=== PATIENT | female | born 1935 | race Caucasian/White ===

== ENCOUNTER 2016-04-05 07:39 | Outpatient (CLI) | payer MEDICARE ==
[2016-04-05 09:12] LABS: Anion Gap 15 mmol/L (10-20); BUN (Urea Nitrogen) 19 mg/dL (9.8-20.1); Calc. Creatinine Clearance 0 mL/min (70-130); Calcium 8.9 mg/dL (7.8-10.44); Carbon Dioxide 23 mmol/L (23-31); Chloride 107 mmol/L (98-107); Estimated GFR-MDRD 65; Glucose 117 mg/dL (83-110); Potassium 3.5 mmol/L (3.5-5.1); Sodium 141 mmol/L (136-145)
== END 2016-04-05 07:40 | disposition home or self-care (01) ==
LOC: MADLAB 07:39
PROVIDERS: ATTEND Internal Medicine Cardiovascular Disease
DX: I50.22 Chronic systolic (congestive) heart failure (principal)
CPT/HCPCS: 36415; 80048

== ENCOUNTER 2016-05-10 08:37 | Outpatient (CLI) | payer MEDICARE ==
[2016-05-10 09:27] LABS: Hemoglobin A1c 6.1 % (4.0-6.0)
[2016-05-10 09:51] LABS: ALT (SGPT) 11 U/L (0-55); AST (SGOT) 12 U/L (5-34); Albumin 3.8 g/dL (3.4-4.8); Alkaline Phosphatase 85 U/L (40-150); Anion Gap 15 mmol/L (10-20); BUN (Urea Nitrogen) 15 mg/dL (9.8-20.1); Bilirubin, Total 0.9 mg/dL (0.2-1.2); Calc. Creatinine Clearance 0 mL/min (70-130); Calcium 8.7 mg/dL (7.8-10.44); Carbon Dioxide 24 mmol/L (23-31); Cardiac Risk 3.5 (Less than 4.5); Chloride 105 mmol/L (98-107); Cholesterol 111 mg/dL (< 200 Desired); Estimated GFR-MDRD 57; Globulin 2.2 g/dL (2.4-3.5); Glucose 111 mg/dL (83-110); HDL Cholesterol 32 mg/dL (>60 Neg Risk); LDL Cholesterol, Calculated 64 mg/dL; Potassium 3.1 mmol/L (3.5-5.1); Sodium 141 mmol/L (136-145); Triglycerides 75 mg/dL (Less than 150)
[2016-05-10 10:32] LABS: Free T4 (Free Thyroxine) 1.52 ng/dL (0.70-1.48); Thyroid Stimulating Hormone 3.3022 uIU/mL (0.35-4.94)
== END 2016-05-10 08:38 ==
LOC: MADLAB 08:37
PROVIDERS: ATTEND Internal Medicine Cardiovascular Disease
DX: E78.2 Mixed hyperlipidemia (principal); I11.0 Hypertensive heart disease with heart failure; I50.22 Chronic systolic (congestive) heart failure
CPT/HCPCS: 36415; 80053; 80061; 83036; 84439; 84443; 84481

== ENCOUNTER 2016-06-30 07:22 | Outpatient (CLI) | payer MEDICARE ==
[2016-06-30 08:05] LABS: Anion Gap 16 mmol/L (10-20); BUN (Urea Nitrogen) 25 mg/dL (9.8-20.1); Calc. Creatinine Clearance 0 mL/min (70-130); Calcium 9.4 mg/dL (7.8-10.44); Carbon Dioxide 26 mmol/L (23-31); Chloride 103 mmol/L (98-107); Estimated GFR-MDRD 35; Glucose 111 mg/dL (83-110); Potassium 4.5 mmol/L (3.5-5.1); Sodium 140 mmol/L (136-145)
== END 2016-06-30 07:23 ==
LOC: MADLAB 07:22
PROVIDERS: ATTEND Internal Medicine Cardiovascular Disease
DX: I50.22 Chronic systolic (congestive) heart failure (principal); I10 Essential (primary) hypertension
CPT/HCPCS: 36415; 80048

== ENCOUNTER 2016-09-03 08:23 | Outpatient (CLI) | payer MEDICARE ==
[2016-09-03 09:31] LABS: #Eosinphils 0.3 thou/uL (0.0-0.7); #Lymphocytes 1.1 thou/uL (1.20-3.40); #Monocytes 0.6 thou/uL (0.11-0.59); #Neutrophils 5.6 thou/uL (1.40-6.50); %Basophils 0.6 % (0.0-1.0); %Lymphocytes 13.9 % (21.0-51.0); %Neutrophils 73.5 % (42.0-75.0); Hemoglobin 10.3 g/dL (12.0-16.0); Mean Corpuscular HGB CONC 31.8 g/dL (32.0-36.0); Mean Corpuscular Hemoglobin 27.6 pg (27.0-31.0); Mean Corpuscular Volume 86.9 fl (81.0-99.0); Mean Platelet Volume 6.5 fL (7.4-10.4); Platelet Count 354 thou/uL (130-400); RBC Distribution Width 14.8 % (11.5-14.5); Red Blood Cell (RBC) Count 3.74 mill/uL (4.20-5.40); White Blood Cell (WBC) Count 7.6 thou/uL (4.8-10.8)
[2016-09-03 10:02] LABS: ALT (SGPT) 12 U/L (8-55); AST (SGOT) 10 U/L (5-34); Albumin 3.4 g/dL (3.4-4.8); Alkaline Phosphatase 174 U/L (40-150); Anion Gap 18 mmol/L (10-20); BUN (Urea Nitrogen) 31 mg/dL (9.8-20.1); Bilirubin, Direct 0.4 mg/dL (0.1-0.3); Bilirubin, Total 0.6 mg/dL (0.2-1.2); Calc. Creatinine Clearance 0 mL/min (70-130); Calcium 9.4 mg/dL (7.8-10.44); Carbon Dioxide 26 mmol/L (23-31); Chloride 100 mmol/L (98-107); Estimated GFR-MDRD 29; Glucose 135 mg/dL (83-110); Potassium 3.8 mmol/L (3.5-5.1); Protein, Total 6.8 g/dL (6.0-8.3); Sodium 140 mmol/L (136-145)
--- NOTE | 2016-09-03 10:08 | RAD ---
AP PELVIS: HISTORY: Bilateral hip pain. FINDINGS: Mild symmetric degenerative changes noted at both hips. Femoral heads maintain normal contour. Mil d medial joint narrowing bilaterally. No fracture or acute osseous lesion. 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 POS: GUS
--- NOTE | 2016-09-03 10:09 | RAD ---
TWO VIEWS RIGHT HIP: COMPARISON: None. HISTORY: Right hip pain. FINDINGS: Two views right hip show no evidence of acute fracture or dislocation. No degenerative changes are seen. No soft tissue swelling is present. IMPRESSION: Unremarkable exam. POS: GUS
[2016-09-03 10:13] LABS: Bilirubin Negative (Negative); Blood, Urine Negative (Negative); Clarity Clear (Clear); Glucose, Urine (Dipstick) Negative (Negative); Leukocyte Small (Negative); Nitrite Negative (Negative); Protein, Urine (Dipstick) Negative (Neg-Trace); Specific Gravity, Urine 1.015 (1.005-1.030); Urobilinogen 0.2 mg/dL (0.2-1.0)
--- NOTE | 2016-09-03 10:15 | RAD ---
LEFT HIP HISTORY: Left hip pain. TECHNIQUE: Two views obtained. FINDINGS: There are mild degenerative changes at the left hip. Femoral head contour is normally maintained. No evidence of fracture. No acute osseous abnormality is seen. IMPRESSION: Mild degenerative changes at the left hip. POS: GUS
--- NOTE | 2016-09-03 10:29 | RAD ---
THREE VIEWS CERVICAL SPINE: COMPARISON: None. HISTORY: Neck pain. FINDINGS: Three views of the cervical spine show normal height and alignment of the vertebral bodies without f racture or subluxation. The intervertebral disks are narrowed and moderate osteophytes are seen thr oughout the cervical spine. There may be mild prevertebral soft tissue swelling which is nonspecifi c. IMPRESSION: 1. 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 2. Possible mild prevertebral soft tissue swelling. This is nonspecific. POS: GUS
== END 2016-09-03 08:24 | disposition home or self-care (01) ==
LOC: MADLAB 08:23
PROVIDERS: ATTEND Internal Medicine Cardiovascular Disease
DX: I50.23 Acute on chronic systolic (congestive) heart failure (principal); M54.2 Cervicalgia; M25.552 Pain in left hip; M25.551 Pain in right hip; M25.60 Stiffness of unspecified joint, not elsewhere classified; R17 Unspecified jaundice; E78.2 Mixed hyperlipidemia; I35.0 Nonrheumatic aortic (valve) stenosis; I10 Essential (primary) hypertension; M47.812 Spondylosis without myelopathy or radiculopathy, cervical region
CPT/HCPCS: 36415; 72040; 72170; 80048; 80076; 81003; 83036; 85025

== ENCOUNTER 2016-09-10 11:02 | Outpatient (CLI) | payer MEDICARE | END 2016-09-10 11:03 | disposition home or self-care (01) | LOC: MADLAB 11:02 | PROVIDERS: ATTEND Family Medicine | DX: M06.4 Inflammatory polyarthropathy (principal) | CPT/HCPCS: 36415; 85652; 86140 ==

== ENCOUNTER 2016-10-25 07:34 | Outpatient (CLI) | payer MEDICARE ==
[2016-10-25 09:07] LABS: Anion Gap 14 mmol/L (10-20); BUN (Urea Nitrogen) 23 mg/dL (9.8-20.1); Calc. Creatinine Clearance 0 mL/min (70-130); Calcium 9.4 mg/dL (7.8-10.44); Carbon Dioxide 24 mmol/L (23-31); Chloride 107 mmol/L (98-107); Estimated GFR-MDRD 42; Glucose 107 mg/dL (83-110); Sodium 141 mmol/L (136-145)
== END 2016-10-25 07:35 | disposition home or self-care (01) ==
LOC: MADLAB 07:34
PROVIDERS: ATTEND Internal Medicine Cardiovascular Disease
DX: I50.42 Chronic combined systolic (congestive) and diastolic (congestive) heart failure (principal)
CPT/HCPCS: 36415; 80048

== ENCOUNTER 2016-11-05 07:32 | Outpatient (CLI) | payer MEDICARE ==
[2016-11-05 08:39] LABS: ALT (SGPT) 18 U/L (8-55); AST (SGOT) 17 U/L (5-34); Albumin 4.1 g/dL (3.4-4.8); Alkaline Phosphatase 134 U/L (40-150); Anion Gap 15 mmol/L (10-20); BUN (Urea Nitrogen) 30 mg/dL (9.8-20.1); Bilirubin, Total 0.7 mg/dL (0.2-1.2); Calc. Creatinine Clearance 0 mL/min (70-130); Calcium 9.5 mg/dL (7.8-10.44); Carbon Dioxide 22 mmol/L (23-31); Chloride 106 mmol/L (98-107); Estimated GFR-MDRD 33; Glucose 100 mg/dL (83-110); Potassium 4.5 mmol/L (3.5-5.1); Protein, Total 7.1 g/dL (6.0-8.3); Sodium 138 mmol/L (136-145)
[2016-11-05 08:44] LABS: Hemoglobin A1c 5.6 % (4.0-6.0)
[2016-11-05 10:09] LABS: Free T4 (Free Thyroxine) 1.39 ng/dL (0.70-1.48); Thyroid Stimulating Hormone 3.7211 uIU/mL (0.35-4.94)
== END 2016-11-05 07:33 | disposition home or self-care (01) ==
LOC: MADLAB 07:32
PROVIDERS: ATTEND Internal Medicine Endocrinology, Diabetes & Metabolism
DX: E78.2 Mixed hyperlipidemia (principal); E03.9 Hypothyroidism, unspecified; E11.65 Type 2 diabetes mellitus with hyperglycemia
CPT/HCPCS: 36415; 80053; 83036; 84439; 84443; 84481

== ENCOUNTER 2017-04-26 08:39 | Outpatient (CLI) | payer MEDICARE ==
[2017-04-26 09:23] LABS: ALT (SGPT) 16 U/L (8-55); AST (SGOT) 16 U/L (5-34); Alkaline Phosphatase 130 U/L (40-150); Anion Gap 16 mmol/L (10-20); BUN (Urea Nitrogen) 27 mg/dL (9.8-20.1); Bilirubin, Direct 0.2 mg/dL (0.1-0.3); Bilirubin, Total 0.6 mg/dL (0.2-1.2); Calc. Creatinine Clearance 0 mL/min (70-130); Calcium 9.9 mg/dL (7.8-10.44); Carbon Dioxide 20 mmol/L (23-31); Chloride 108 mmol/L (98-107); Estimated GFR-MDRD 32; Glucose 154 mg/dL (83-110); Potassium 4.7 mmol/L (3.5-5.1); Protein, Total 7.7 g/dL (6.0-8.3); Sodium 139 mmol/L (136-145)
== END 2017-04-26 08:40 | disposition home or self-care (01) ==
LOC: MADLAB 08:39
PROVIDERS: ATTEND Internal Medicine Cardiovascular Disease
DX: E78.2 Mixed hyperlipidemia (principal); I10 Essential (primary) hypertension; Z95.0 Presence of cardiac pacemaker
CPT/HCPCS: 36415; 80048; 80076

== ENCOUNTER 2017-05-06 08:43 | Outpatient (CLI) | payer MEDICARE ==
[2017-05-06 09:13] LABS: ALT (SGPT) 12 U/L (8-55); AST (SGOT) 12 U/L (5-34); Albumin 4.1 g/dL (3.4-4.8); Alkaline Phosphatase 131 U/L (40-150); Anion Gap 17 mmol/L (10-20); BUN (Urea Nitrogen) 57 mg/dL (9.8-20.1); Bilirubin, Total 0.4 mg/dL (0.2-1.2); Calc. Creatinine Clearance 0 mL/min (70-130); Calcium 9.5 mg/dL (7.8-10.44); Carbon Dioxide 22 mmol/L (23-31); Cardiac Risk 8.1 (Less than 4.5); Chloride 105 mmol/L (98-107); Cholesterol 274 mg/dl (< 200 Desired); Estimated GFR-MDRD 24; Glucose 134 mg/dL (83-110); HDL Cholesterol 34 mg/dL (>60 Neg Risk); LDL Cholesterol, Calculated 208 mg/dL; Potassium 5.2 mmol/L (3.5-5.1); Sodium 139 mmol/L (136-145); Triglycerides 160 mg/dL (Less than 150)
[2017-05-06 12:18] LABS: Bilirubin, Direct 0.2 mg/dL (0.1-0.3)
== END 2017-05-06 08:44 | disposition home or self-care (01) ==
LOC: MADLABBHPM 08:43
PROVIDERS: ATTEND Internal Medicine Cardiovascular Disease
DX: E78.2 Mixed hyperlipidemia (principal); I10 Essential (primary) hypertension; Z95.0 Presence of cardiac pacemaker
CPT/HCPCS: 36415; 80048; 80061; 80076

== ENCOUNTER 2017-06-24 11:54 | Outpatient (CLI) | payer MEDICARE ==
[2017-06-24 14:56] LABS: Thyroid Stimulating Hormone 10.7813 uIU/mL (0.35-4.94)
[2017-06-24 17:35] LABS: Free T4 (Free Thyroxine) 1.18 ng/dL (0.70-1.48)
[2017-06-26 15:03] LABS: Follow-up Chemistry Comp? YES; Follow-up Result - Chemistry REPORT FAXED
== END 2017-06-24 11:55 | disposition home or self-care (01) ==
LOC: MADLAB 11:54
PROVIDERS: ATTEND Internal Medicine Endocrinology, Diabetes & Metabolism
DX: E03.9 Hypothyroidism, unspecified (principal); E11.65 Type 2 diabetes mellitus with hyperglycemia; E78.2 Mixed hyperlipidemia
CPT/HCPCS: 36415; 84439; 84443; 84481

== ENCOUNTER 2020-04-10 13:34 | Outpatient (CLI) | payer MEDICARE ==
--- NOTE | 2020-04-10 17:18 | RAD ---
RIGHT KNEE THREE VIEWS: History: Knee pain FINDINGS: Joint spaces are preserved. No degenerative spurring. No joint effusion. No fracture or acute abnorma lity. Arterial calcification is noted. IMPRESSION: Very mild degenerative change right knee. POS: AGW
== END 2020-04-10 13:35 | disposition home or self-care (01) ==
LOC: MADRAD 13:34
PROVIDERS: ATTEND Orthopaedic Surgery
DX: M25.561 Pain in right knee (principal); M17.11 Unilateral primary osteoarthritis, right knee

== ENCOUNTER 2020-09-04 20:43 | Emergency (ER) | payer OTHER, MEDICARE ==
[2020-09-04] MEDS ORDERED: Bacitracin 1 PK ONE (21:34)
[2020-09-04] MEDS ORDERED: Sodium Chloride Irrig Solution 250 ML ONE (21:44)
== END 2020-09-04 22:17 | disposition home or self-care (01) ==
LOC: MADERS 20:43
DX: S93.431A Sprain of tibiofibular ligament of right ankle, initial encounter (principal); S80.11XA Contusion of right lower leg, initial encounter; E78.5 Hyperlipidemia, unspecified; I25.10 Atherosclerotic heart disease of native coronary artery without angina pectoris; I11.0 Hypertensive heart disease with heart failure; I50.9 Heart failure, unspecified; E11.9 Type 2 diabetes mellitus without complications; Z79.01 Long term (current) use of anticoagulants; Z79.899 Other long term (current) drug therapy; W19.XXXA Unspecified fall, initial encounter; Y92.512 Supermarket, store or market as the place of occurrence of the external cause

== ENCOUNTER 2021-01-02 10:37 | Outpatient (CLI) | payer MEDICARE ==
[2021-01-02 11:34] LABS: ALT (SGPT) 19 U/L (8-55); AST (SGOT) 14 U/L (5-34); Albumin 3.6 g/dL (3.4-4.8); Alkaline Phosphatase 108 U/L (40-110); Anion Gap 15 mmol/L (10-20); BUN (Urea Nitrogen) 25 mg/dL (9.8-20.1); Bilirubin, Direct 0.5 mg/dL (0.1-0.3); Bilirubin, Total 0.9 mg/dL (0.2-1.2); Calc. Creatinine Clearance 0 mL/min (70-130); Calcium 9.6 mg/dL (7.8-10.44); Carbon Dioxide 16 mmol/L (23-31); Cardiac Risk 3.9 (Less than 4.5); Chloride 111 mmol/L (98-107); Cholesterol 134 mg/dl (< 200 Desired); Globulin 2.5 g/dL (2.4-3.5); Glucose 160 mg/dL (83-110); HDL Cholesterol 34 mg/dL (>60 Neg Risk); LDL Cholesterol, Calculated 83 mg/dL; Potassium 5.2 mmol/L (3.5-5.1); Protein, Total 6.1 g/dL (5.8-8.1); Sodium 137 mmol/L (136-145); Triglycerides 86 mg/dL (Less than 150)
[2021-01-02 17:08] LABS: Hemoglobin A1c 9.2 % (4.0-6.0)
[2021-01-03 03:38] LABS: Free T4 (Free Thyroxine) 1.44 ng/dL (0.70-1.48)
== END 2021-01-02 10:38 | disposition home or self-care (01) ==
LOC: MADLAB 10:37
PROVIDERS: ATTEND Internal Medicine Cardiovascular Disease
DX: E11.65 Type 2 diabetes mellitus with hyperglycemia (principal); I10 Essential (primary) hypertension; E03.9 Hypothyroidism, unspecified; I35.0 Nonrheumatic aortic (valve) stenosis; Z95.1 Presence of aortocoronary bypass graft
CPT/HCPCS: 36415; 80053; 80061; 80076; 83036; 84439; 84443; 84481